=== PATIENT | female | born 1945 | race Caucasian/White ===

== ENCOUNTER 2018-01-03 13:45 | Outpatient (CLI) | payer MEDICARE, BC ==
--- NOTE | 2018-01-03 14:24 | RAD ---
PA AND LATERAL CHEST: Date: 01/03/18 HISTORY: Dyspnea. COMPARISON: None available. FINDINGS: Cardiac silhouette is at the upper limits of normal in size. Pulmonary vasculature is within normal l imits. Slight increased density at the lateral aspect left mid lung zone likely related to overlying soft tissue density. Lungs otherwise appear clear. Vascular calcifications seen in thoracic aorta. Mi ld degenerative changes noted in the spine. There does appear to be slight height loss of a few mid t horacic vertebral bodies, as well as what is thought to be the L2 vertebral body, which may represent minimal compression fractures of indeterminate age. IMPRESSION: 1. No acute cardiopulmonary process. 2. Minimal compression deformities of mid thoracic and upper lumbar vertebral bodies, as described a jovana, which are of indeterminate age. POS: [facility]
== END 2018-01-03 13:46 | disposition home or self-care (01) ==
LOC: RAD 13:45
PROVIDERS: ATTEND Internal Medicine Critical Care Medicine
DX: R06.00 Dyspnea, unspecified (principal)
CPT/HCPCS: 71046